=== PATIENT | male | born 1990 | race African-American/Black ===

== ENCOUNTER 2017-04-29 07:24 | Emergency (ER) | payer SELFPAY ==
[~2017-04-29] VITALS: Ht 167.6 cm; Wt 65.0 kg
[~2017-04-29 07:24] MED LIST: FIORTAB4 PO; Z.0.NO CURRENT MEDS
[2017-04-29 07:25] VITALS: BP 140/92; PULSE 78; RESP 14; TEMP 97.8; O2SAT 99
--- NOTE | 2017-04-29 07:35 | PD ---
HPI Chief Complaint: GI Complaint Time Seen by Provider: 07:34 Travel History International Travel<30 days: No Contact w/Intl Traveler<30days: No Traveled to known affect area: No History of Present Illness HPI 27-year-old male came to the emergency room with history of vomiting and diarrhea for past 2 days. Patient says that today he was feeling little better and wanted to go to work but his mother insisted that he should come to the emergency room to be checked. His last episode of vomiting was 2 in the morning and last diarrhea was at 6 in the morning. Patient has not eaten or drank anything since then. Vital signs were stable. Patient says that he noticed some blood in his stool but that is not unusual for him. He had a severe trauma as a child which required reconstructive surgery of his rectum. His occasional bleeding in his stool. [facility] Past Medical History Narrative Medical List of his past medical, surgical, social and family history was reviewed from the nursing note. Developmental Delay: No Diminished Hearing: No Headaches: Yes Immunizations Current: Yes Past Surgical History Other Surgery: Yes (ON HIS BUTTOCK) Social History Alcohol Use: No Tobacco Use: No Substance Use: No Allergies-Medications (Allergen,Severity, Reaction): Coded Allergies: No Known Allergies (Verified , 01/20/07) Comments No known drug allergies. Reported Meds & Prescriptions Reported Meds & Active Scripts Active Loperamide (Loperamide HCl) 2 Mg Cap 2 Mg PO DIRECTED PRN One capsule after each loose stool. Not to exceed 8 capsules per day. Zofran Odt (Ondansetron Odt) 4 Mg Tab 4 Mg SL Q12HR PRN Fioricet (Acetaminophen/Butalbital/Caffeine) Tab 1 Tab PO Q6HPRN FOR HEADACHE Reported No Current Meds (Miscellaneous Medication) [facility] [place] Medication List of his home medications reviewed from the nursing note. Review of Systems Except as stated in HPI: all other systems reviewed are Neg Gastrointestinal: Positive: Nausea, Vomiting, Diarrhea Physical Exam Narrative GENERAL: Awake, alert, no obvious distress SKIN: Focused skin assessment warm/dry. HEAD: Atraumatic. Normocephalic. EYES: Pupils equal and round. No scleral icterus. No injection or drainage. ENT: No nasal bleeding or discharge. Dry mucous membrane and coated tongue NECK: Trachea midline. No JVD. CARDIOVASCULAR: Regular rate and rhythm. No murmur appreciated. RESPIRATORY: No accessory muscle use. Clear to auscultation. Breath sounds equal bilaterally. GASTROINTESTINAL: Abdomen soft, non-tender, nondistended. Hepatic and splenic margins not palpable. MUSCULOSKELETAL: No obvious deformities. No clubbing. No cyanosis. No edema. NEUROLOGICAL: Awake and alert. No obvious cranial nerve deficits. Motor grossly within normal limits. Normal speech. PSYCHIATRIC: Appropriate mood and affect; insight and judgment normal. Data Data Last Documented VS Vital Signs Date Time Temp Pulse Resp B/P (MAP) Pulse Ox O2 Delivery O2 Flow Rate FiO2 04/29/17 09:16 87 15 132/84 (100) 99 04/29/17 07:25 97.8 Orders Orders Basic Metabolic Panel (Bmp) (04/29/17 07:43) Complete Blood Count With Diff (04/29/17 07:43) Iv Access Insert/Monitor (04/29/17 07:43) Ecg Monitoring (04/29/17 07:43) Oximetry (04/29/17 07:43) Ondansetron Inj (Zofran Inj) (04/29/17 07:45) Sodium Chlor 0.9% 1000 Ml Inj (Ns 1000 M (04/29/17 07:43) Sodium Chloride 0.9% Flush (Ns Flush) (04/29/17 07:45) Loperamide (Imodium) (04/29/17 07:45) Ed Discharge Order (04/29/17 08:50) Labs Laboratory Tests Test 04/29/17 07:51 White Blood Count 4.9 TH/MM3 Red Blood Count 4.40 MIL/MM3 Hemoglobin 14.1 GM/DL Hematocrit 40.6 % Mean Corpuscular Volume 92.3 FL Mean Corpuscular Hemoglobin 32.0 PG Mean Corpuscular Hemoglobin Concent 34.7 % Red Cell Distribution Width 12.0 % Platelet Count 226 TH/MM3 Mean Platelet Volume 8.6 FL Neutrophils (%) (Auto) 38.5 % Lymphocytes (%) (Auto) 47.1 % Monocytes (%) (Auto) 10.0 % Eosinophils (%) (Auto) 3.9 % Basophils (%) (Auto) 0.5 % Neutrophils # (Auto) 1.9 TH/MM3 Lymphocytes # (Auto) 2.3 TH/MM3 Monocytes # (Auto) 0.5 TH/MM3 Eosinophils # (Auto) 0.2 TH/MM3 Basophils # (Auto) 0.0 TH/MM3 CBC Comment DIFF FINAL Differential Comment Blood Urea Nitrogen 13 MG/DL Creatinine 0.92 MG/DL Random Glucose 89 MG/DL Calcium Level 8.5 MG/DL Sodium Level 142 MEQ/L Potassium Level 3.5 MEQ/L Chloride Level 109 MEQ/L Carbon Dioxide Level 26.1 MEQ/L Anion Gap 7 MEQ/L Estimat Glomerular Filtration Rate 121 ML/MIN MDM Medical Decision Making Medical Screen Exam Complete: Yes Emergency Medical Condition: Yes Medical Record Reviewed: Yes Differential Diagnosis Acute gastroenteritis, viral illness Narrative Course A 40 8 AM blood test results of back and within acceptable limits. Patient received IV fluid bolus, IV Zofran and loperamide. I'm comfortable discharging him home. He has not had anymore episodes of vomiting or diarrhea now. Procedures EKG Prior to Arrival: No Diagnosis Primary Impression: Gastroenteritis Referrals: Primary Care Physician Additional Instructions: Return to the ER if condition worsens or any other new concerns. Otherwise take the medication as per the prescription direction. Med/Other Pt SpecificInfo: Prescription(s) given Scripts Loperamide (Loperamide) 2 Mg Cap 2 MG PO DIRECTED Y for DIARRHEA, #6 CAP 0 Refills One capsule after each loose stool. Not to exceed 8 capsules per day. Prov: Jaiden Yoon MD 04/29/17 Ondansetron Odt (Zofran Odt) 4 Mg Tab 4 MG SL Q12HR Y for Nausea/Vomiting, #10 TAB 0 Refills Prov: Jaiden Yoon MD 04/29/17 Disposition: 01 DISCHARGE HOME Condition: Stable Jaiden Yoon MD Apr 29, 2017 07:35
[2017-04-29] MEDS ORDERED: SODIUM CHLOR 0.9% 1000 ML INJ 1,000 ML IV SCH (07:43)
[2017-04-29] MEDS ORDERED: ONDANSETRON HCL 4 MG/2 ML VIAL IVP ONE (07:45)
[2017-04-29] MEDS ORDERED: LOPERAMIDE HCL 2 MG CAP PO ONE (07:45)
[2017-04-29] MEDS ORDERED: SODIUM CHLORIDE 0.9% FLUSH 10 ML FLUSH IV FLUSH PRN (07:45)
[2017-04-29 08:12] LABS: AUTOMATED NEUTROPHIL # 1.9 TH/MM3 (1.8-7.7); BASOPHIL % 0.5 % (0.0-2.0); EOSINOPHIL # 0.2 TH/MM3 (0-0.4); EOSINOPHIL % 3.9 % (0.0-4.0); HEMATOCRIT 40.6 % (39.0-51.0); HEMOGLOBIN 14.1 GM/DL (13.0-17.0); LYMPH % 47.1 % (9.0-44.0); LYMPHOCYTE # 2.3 TH/MM3 (1.0-4.8); MEAN CELL VOLUME 92.3 FL (80.0-100.0); MEAN CORPUSCULAR HGB CONC 34.7 % (32.0-36.0); MEAN PLATELET VOLUME 8.6 FL (7.0-11.0); MONOCYTE # 0.5 TH/MM3 (0-0.9); NEUT % 38.5 % (16.0-70.0); PLATELET COUNT 226 TH/MM3 (150-450); WHITE BLOOD COUNT 4.9 TH/MM3 (4.0-11.0)
[2017-04-29 08:36] LABS: BICARBONATE 26.1 MEQ/L (21.0-32.0); CALCIUM 8.5 MG/DL (8.5-10.1); CREATININE 0.92 MG/DL (0.60-1.30)
[2017-04-29] MEDS ORDERED: LOPE2CAP PO (08:50)
[2017-04-29] MEDS ORDERED: ZOFR4TAB3 SL (08:50)
[2017-04-29 09:16] VITALS: BP 132/84
== END 2017-04-29 09:59 | disposition home or self-care (01) ==
LOC: NEPE 07:24
DX: K52.9 Noninfective gastroenteritis and colitis, unspecified (principal)
CPT/HCPCS: 80048; 85025; 96361; 96374; 99284; J2405; J7030